=== PATIENT | female | born 1985 | race Caucasian/White ===

== ENCOUNTER → 2018-05-18 11:19 | Outpatient (CLI) | payer OTHER, MEDICAID, SELFPAY ==
--- NOTE | 2018-05-18 | DI.US.S_ITS ---
PROCEDURE: US OB <= 14 WEEKS FETUS INDICATIONS: INITIAL OB US OUTSIDE/PRIOR DATING DATA: Last menstrual period (LMP): Unknown. LMP-based estimated date of delivery (RADHA): N./A. First dating scan (date and location): 05/18/18, [facility]. Estimated date of delivery (RADHA) from first dating scan: 11/30/18. TECHNIQUE: Real-time scanning was performed of the fetus and maternal pelvic organs, with image documentation. COMPARISON: None. FINDINGS: Embryo: A single live intrauterine is seen. The measured heart rate is 145 beats per minute. The crown-rump length measures 5.4 cm, corresponding to an estimated gestational age of 12 weeks 0 days. It is too early for detailed anatomic assessment. By visual inspection, the amount of amniotic fluid is within normal limits. No significant findings of subchorionic/perigestational hemorrhage are seen. Measurement variability in dating: +/- 4 weeks by LMP, +/- 7 days by mean sac diameter (use before 6 weeks gestation if crown-rump length not able to be measured), +/- 5 days by crown-rump length (up to 8 weeks 6 days gestation), +/- 7 days by crown-rump length (up to 13 weeks 6 days gestation). Maternal organs: Ovaries are unremarkable. The cervix measures 3.8 cm in length. Limited images through the kidneys demonstrate no hydronephrosis. IMPRESSION: A single live intrauterine is seen. The estimated gestational age based upon the crown-rump length is 12 weeks 0 days, which corresponds to an estimated gestational age of 12 weeks 0 days and an ultrasound estimated date of delivery of 11/30/18. Dictated by: Len Walker M.D. on 05/18/2018 at 14:54 Approved by: Len Walker M.D. on 05/18/2018 at 14:56
== END ==
PROVIDERS: Visit Provider Family Medicine
DX: Z34.91 Encounter for supervision of normal pregnancy, unspecified, first trimester (principal); Z3A.12 12 weeks gestation of pregnancy
CPT/HCPCS: 76801